=== PATIENT | male | born 1995 | race Hispanic/Latino ===

== ENCOUNTER 2019-12-25 09:16 | Emergency (ER) | payer OTHER, SELFPAY ==
[2019-12-25] MEDS ORDERED: Acetaminophen 500 MG TAB ONE (10:17)
[2019-12-25 18:36] LABS: SARS-CoV-2 MS2 Positive; SARS-CoV-2 N Gene Negative; SARS-CoV-2 S Gene Negative; SARS-CoV-2 orf1ab Negative
== END 2019-12-25 11:30 | disposition home or self-care (01) ==
LOC: ERS 09:16
DX: R50.9 Fever, unspecified (principal); Z20.828 Contact with and (suspected) exposure to other viral communicable diseases
CPT/HCPCS: 87635; 87804; 99283; U0003

== ENCOUNTER 2021-12-27 19:47 | Emergency (ER) | payer SELFPAY | END 2021-12-27 20:42 | disposition home or self-care (01) | LOC: ERS 19:47 | DX: H66.91 Otitis media, unspecified, right ear (principal) | CPT/HCPCS: 99283 ==

== ENCOUNTER 2022-04-01 20:46 | Emergency (ER) | payer SELFPAY ==
[~2022-04-01 20:46] MED LIST: Iopamidol-370 76% 500 ML 1 ML ONE
[2022-04-01] MEDS ORDERED: Acetaminophen 500 MG TAB ONE (21:14)
[2022-04-01 21:39] LABS: #Basophils 0.1 thou/uL (0.0-0.2); #Eosinphils 0.1 thou/uL (0.0-0.7); #Lymphocytes 1.6 thou/uL (1.20-3.40); #Monocytes 0.6 thou/uL (0.11-0.59); #Neutrophils 8.3 thou/uL (1.40-6.50); %Basophils 0.5 % (0.0-1.0); %Eosinophils 1.1 % (0.0-10.0); %Lymphocytes 15.2 % (21.0-51.0); %Monocytes 5.6 % (0.0-10.0); %Neutrophils 77.5 % (42.0-75.0); Hemoglobin 15.3 g/dL (14.0-18.0); Mean Corpuscular HGB CONC 35.6 g/dL (32.0-36.0); Mean Corpuscular Volume 92.9 fL (78.0-98.0); Mean Platelet Volume 8.4 fL (7.4-10.4); Platelet Count 270 thou/uL (130-400); RBC Distribution Width 11.5 % (11.5-14.5); Red Blood Cell (RBC) Count 4.62 mill/uL (4.70-6.10); White Blood Cell (WBC) Count 10.7 thou/uL (4.8-10.8)
[2022-04-01 21:41] LABS: Prothrombin Time 13.1 sec (12.0-14.7)
[2022-04-01 21:48] LABS: ALT (SGPT) 21 U/L (8-55); AST (SGOT) 15 U/L (5-34); Albumin 4.1 g/dL (3.5-5.0); Alkaline Phosphatase 93 U/L (40-110); Anion Gap 19 mmol/L (10-20); BUN (Urea Nitrogen) 9 mg/dL (8.9-20.6); Bilirubin, Total 0.3 mg/dL (0.2-1.2); Calc. Creatinine Clearance 0 mL/min (70-130); Calcium 8.9 mg/dL (7.8-10.44); Carbon Dioxide 17 mmol/L (22-29); Chloride 108 mmol/L (98-107); Estimated GFR 121; Globulin 2.5 g/dL (2.4-3.5); Glucose 306 mg/dL (70-105); Potassium 3.7 mmol/L (3.5-5.1); Protein, Total 6.6 g/dL (6.0-8.3); Sodium 140 mmol/L (136-145)
[2022-04-01 22:03] LABS: PTT 21.7 sec (22.9-36.1)
== END 2022-04-02 00:36 | disposition home or self-care (01) ==
LOC: ERS 20:46
DX: R07.9 Chest pain, unspecified (principal)
CPT/HCPCS: 36415; 71045; 71275; 74174; 80053; 84484; 85025; 85610; 85730; 93005; Q9967

== ENCOUNTER 2023-12-20 22:18 | Emergency (ER) | payer SELFPAY ==
[2023-12-21] MEDS ORDERED: Fluconazole 100 MG TAB ONE (00:05)
== END 2023-12-21 00:15 | disposition home or self-care (01) ==
LOC: ERS 22:18
DX: B37.42 Candidal balanitis (principal)
CPT/HCPCS: 99282

== ENCOUNTER 2025-07-18 23:11 | Emergency (ER) | payer SELFPAY ==
[2025-07-19] MEDS ORDERED: Amoxicillin/Potassium Clav 875 MG TAB ONE (01:28)
== END 2025-07-19 01:49 | disposition home or self-care (01) ==
LOC: ERS 23:11
DX: K04.7 Periapical abscess without sinus (principal); K08.89 Other specified disorders of teeth and supporting structures; Z55.6 Problems related to health literacy
CPT/HCPCS: 96372; 99282